=== PATIENT | female | born 1990 | race Caucasian/White ===

== ENCOUNTER 2016-07-15 12:04 | Emergency (ER) | payer BC ==
[~2016-07-15] VITALS: Ht 170.2 cm; Wt 92.0 kg
[2016-07-15 12:13] VITALS: Ht 170.2 cm; Wt 92.0 kg
--- NOTE | 2016-07-15 13:12 | ERD ---
ER Documentation Chief Complaint Date/Time DATE: 07/15/16 Chief Complaint Request for MRI HPI The patient is a 25-year-old female who presents to the Emergency Department with request for an MRI. The patient reports that this morning she presented to [facility] in the [facility] for a routine eye exam. She was seen by an semiconductor wafer inspector, Kathya Olson O.D. During the exam, her semiconductor wafer inspector dilated her eyes. She noted during the evaluation that the patient had no change in vision from her previous prescription, and did not need a prescription or lens change. However, she also noted some possible blurring of the optic disk. Because of this, she was advised to present to the Emergency Department with a note requesting an MRI to rule out pseudotumor cerebri or optic neuritis. Therefore the patient presents today. The patient notes that her visit was completely routine and she has no current eye complaints or discomfort. She denies any recent visual changes, diplopia, blurred vision, vision loss, photophobia, scotomas or floaters. Denies headache, dizziness, weakness, vomiting, rashes. Denies elevated blood pressures. Denies family history of pseudotumor cerebri, multiple sclerosis or optic neuritis. She has no complaints at this time. She has not seen a paper stripper or a primary medical provider. ROS All systems reviewed and are negative except as per history of present illness. Allergies Allergies: Coded Allergies: No Known Allergy (Unverified , 07/15/16) PMhx/Soc Medical and Surgical Hx: pt denies Medical Hx, pt denies Surgical Hx Hx Alcohol Use: No Hx Substance Use: No Hx Tobacco Use: No Smoking Status: Never smoker Physical Exam Vitals Vital Signs Date Time Temp Pulse Resp B/P Pulse Ox O2 Delivery O2 Flow Rate FiO2 07/15/16 12:13 98.5 66 18 118/78 97 Physical Exam Const: Well-developed, well-nourished, in no acute distress. Nontoxic. Well- appearing. Pleasant female. Head: Normocephalic. Atraumatic. Eyes: Normal Conjunctiva. No scleral pallor or injection. No photophobia. Dilated pupils (likely from recent examination) with normal cup-to-disc ratio. No papilledema noted. Vision grossly intact. No discharge. No pain with eye movement. No periorbital swelling or erythema. PERRL. EOMI. No nystagmus. ENT: Moist mucous membranes. Neck: Supple. Resp: Clear to auscultation bilaterally Cardio: Regular rate and rhythm, no murmurs. Skin: No petechiae or rashes Ext: No clubbing, cyanosis, or edema. Moving all extremities. Neur: Awake and alert. Oriented. No focal neurologic deficits. Psych: Cooperative. Appropriate. Procedures/MDM This is a 25-year-old female presenting to the Emergency Department with request for MRI. The patient was recently seen by an semiconductor wafer inspector, who noted possible blurring of the optic disk and therefore sent the patient to the ED for MRI imaging. However, patient with no visual changes or complaints. She denies visual changes, diplopia, blurred vision, vision loss, scotomas, floaters , color change or any other changes. She is well-appearing. Recent visual testing performed by the semiconductor wafer inspector noted no change in the patient's vision and stable eyesight from prior. Patient has no history of hypertension, no familial history of optic neuritis or multiple sclerosis. The patient's case and presentation were discussed with both Dr. Sadiq Redmond and Dr. Nick Yip, who state that patient is with no emergent findings or visual changes, and there is no current indication for emergent MRI to be performed from the ED. Rather, the patient may follow up with her PMD and/or paper stripper to have MRI performed as an outpatient. This was discussed with the patient who understands, and agrees with the plan. A call was placed to Kathya Olson at [employer] to inform her of this, and a message was left with the campus administrative assistant. At this time, the patient is in stable condition and therefore she can be discharged home with strict return precautions for signs of deteriorating or worsening condition. The patient is advised to follow up with a primary care provider (referral provided) and [facility] for reevaluation and further management, or return to the ER sooner for any new or worsening symptoms. I shared my medical decision making and plan with the patient at length and in great detail, and the patient verbally understands and agrees with the plan for further observation and care as an outpatient. At the time of discharge, all questions were answered. Departure Diagnosis: Primary Impression: Well adult exam Condition: Stable Patient Instructions: Magnetic Resonance Imaging (MRI) Referrals: FILOMENA GOMEZ MD [facility] Additional Instructions: Follow up with a primary medical provider and/or paper stripper within 1-2 days for reevaluation and further management. If MRI is still indicated, please obtain referral/order to have the test as an outpatient. Return to the ED sooner for any new or worsening symptoms. PREET AVILA PA-C Jul 15, 2016 13:12
== END 2016-07-15 13:30 | disposition home or self-care (01) ==
LOC: FTE 12:04
DX: Z00.00 Encounter for general adult medical examination without abnormal findings (principal)
CPT/HCPCS: 99282